=== PATIENT | male | born 1930 | race Caucasian/White ===

== ENCOUNTER 2017-10-14 10:40 | Outpatient (CLI) | END 2017-10-14 10:41 | disposition home or self-care (01) | LOC: NONPT 10:40 | PROVIDERS: ATTEND Family Medicine | DX: I50.9 Heart failure, unspecified (principal); I48.91 Unspecified atrial fibrillation; E11.9 Type 2 diabetes mellitus without complications | CPT/HCPCS: 80048 ==

== ENCOUNTER 2017-11-30 11:31 | Outpatient (CLI) | END 2017-11-30 11:32 | disposition home or self-care (01) | LOC: NONPT 11:31 | PROVIDERS: ATTEND Family Medicine | DX: I50.9 Heart failure, unspecified (principal); I48.91 Unspecified atrial fibrillation; E11.9 Type 2 diabetes mellitus without complications | CPT/HCPCS: 80048; 83540 ==